=== PATIENT | male | born 1940 | race Caucasian/White ===

== ENCOUNTER → 2017-05-07 | Outpatient (CLI) | payer MEDICARE ==
[~2017-05-07] MED LIST: APIX5TAB PO; FEXO180T15 PO; HYDR25TA6 PO; LOSA100T6 PO; LOVA40TA2 PO; SILD20TA PO; TRAZ50TA18 PO; ZOLP10TA5 PO
== END | disposition home or self-care (01) ==
LOC: RAD 14:12
PROVIDERS: ATTEND Internal Medicine
DX: J18.9 Pneumonia, unspecified organism (principal); I51.7 Cardiomegaly
CPT/HCPCS: 71020

== ENCOUNTER → 2017-06-14 | Outpatient (CLI) | payer MEDICARE | END | disposition home or self-care (01) | LOC: CFH 13:32 | PROVIDERS: ATTEND Internal Medicine | DX: J47.9 Bronchiectasis, uncomplicated (principal); J84.89 Other specified interstitial pulmonary diseases; I51.7 Cardiomegaly | CPT/HCPCS: 71250 ==

== ENCOUNTER 2018-05-30 21:54 | Inpatient (IN) | payer MEDICARE ==
[~2018-05-30] VITALS: Ht 182.9 cm; Wt 96.5 kg
[~2018-05-30 21:54] MED LIST changes: -LOSA100T6 PO; +LOSA100T7 PO; -TRAZ50TA18 PO; +TRAZ50TA66 PO
[2018-05-30 22:38] LABS: RAPID INFLUENZA A Negative (Negative); RAPID INFLUENZA B Negative (Negative)
[2018-05-30 22:43] LABS: BASOPHILS # (AUTO) 0.04 x10^3/uL (0-0.1); BASOPHILS % (AUTO) 0 % (0-1); EOSINOPHILS % (AUTO) 2 % (1-7); LYMPHOCYTES # (AUTO) 0.65 x10^3/uL (1-3.4); LYMPHOCYTES % (AUTO) 7 % (22-44); MD NO; MEAN CORPUSCULAR HEMOGLOBIN 36.1 pg (27.5-34.5); MEAN CORPUSCULAR HGB CONC 34.4 g/dL (33.2-36.2); MEAN PLATELET VOLUME 10.6 fL (7.4-10.4); MONOCYTES # (AUTO) 1.15 x10^3/uL (0.2-0.8); MONOCYTES % (AUTO) 12 % (2-9); NEUTROPHILS # (AUTO) 7.79 x10^3/uL (1.8-6.8); NEUTROPHILS % (AUTO) 79 % (42-75); PLATELET COUNT 166 x10^3/uL (130-400); RED BLOOD COUNT 4.04 x10^6/uL (4.38-5.82)
[2018-05-30 22:51] LABS: ALANINE AMINOTRANSFERASE 20 U/L (12-78); ALBUMIN 3.2 g/dL (3.4-5.0); ANION GAP 9 mmol/L (5-15); CALCIUM 8.2 mg/dL (8.5-10.1); CHLORIDE 101 mmol/L (98-107); CREATININE 0.97 mg/dL (0.7-1.3)
[2018-05-30] MEDS ORDERED: PRED10TA14 PO (22:53)
[2018-05-30] MEDS ORDERED: METF-163 PO (22:53)
[2018-05-30 22:55] LABS: ALKALINE PHOSPHATASE 92 U/L (45-117); BILIRUBIN,TOTAL 0.4 mg/dL (0.2-1.0); TOTAL PROTEIN 7.4 g/dL (6.4-8.2); TROPONIN I 0.022 ng/mL (0.000-0.045)
--- NOTE | 2018-05-30 23:00 | NUR ---
PT HERE FOR INCREASING WEAKNESS, COUGH AND CONGESTION WITH FEVER AT HOME. BP ELEVATED OTHER VSS. PIV STARTED BY [facility]. MED REC COMPLETE. PT PLACED ON MONITORS. CALL LIGHT IN REACH
--- NOTE | 2018-05-30 23:25 | NUR ---
PT TOO WEAK TO AMBULATED. ASSISTED PT TO SITTING PT UNABLE TO SIT WITHOUT ASSISTANCE. MD KENNEY
[2018-05-30] MEDS ORDERED: AZITHROMYCIN 500 MG in SODIUM CHLORIDE 0.9% 250 ML IV ONE (23:30)
[2018-05-30] MEDS ORDERED: CEFTRIAXONE PMX 1GM/50ML 50 ML IV SCH (23:30)
[2018-05-30] MEDS ORDERED: BENZONATATE 100 MG CAPSULE ONE (23:41)
[2018-05-30] MEDS ORDERED: CEFTRIAXONE PMX 1GM/50ML 50 ML ONE (23:42)
[2018-05-31] MEDS ORDERED: BENZONATATE 100 MG CAPSULE PO ONE
--- NOTE | 2018-05-31 00:04 | NUR ---
ABX RUNNING. PT MEDICATED. ADMITTING MD AT BEDSIDE
[2018-05-31] MEDS ORDERED: ACETAMINOPHEN 325 MG TABLET PO PRN (00:30)
[2018-05-31] MEDS ORDERED: DOCUSATE 100 MG CAPSULE PO PRN (00:30)
[2018-05-31] MEDS ORDERED: ONDANSETRON ODT 4 MG PO PRN (00:30)
[2018-05-31] MEDS ORDERED: LIDODERM 5% PATCH TD PRN (00:30)
[2018-05-31] MEDS ORDERED: hydrALAzine 20 MG/ML, 1ML IVPush PRN (00:30)
[2018-05-31] MEDS ORDERED: TRAZODONE 50MG TABLET PO PRN (00:30)
[2018-05-31] MEDS: LOVASTATIN 40 MG TABLET PO SCH ×2 (00:36→21:08)
[2018-05-31] MEDS: GUAIFENESIN/DM 200-20MG, 10ML UDC PO PRN ×2 (00:36→06:14)
[2018-05-31 00:55] VITALS: BP 187/81
[2018-05-31 01:59] VITALS: BP 165/106
[2018-05-31 02:16] VITALS: BP 138/79
[2018-05-31 07:36] VITALS: BP 135/78
[2018-05-31] MEDS: BENZONATATE 100 MG CAPSULE PO SCH ×3 (08:42→21:09)
[2018-05-31] MEDS: HYDROCHLOROTHIAZIDE 25 MG TABLET PO SCH (08:43)
[2018-05-31] MEDS: LOSARTAN 50MG TABLET PO SCH (08:43)
[2018-05-31] MEDS: LORATADINE 10 MG TABLET PO SCH (08:43)
[2018-05-31] MEDS: APIXABAN 5 MG TABLET PO SCH ×2 (08:43→21:09)
[2018-05-31] MEDS: INSULIN LISPRO 100 UNITS/ML, PEN SQ-INSULIN SCH ×4 (09:25→21:25)
[2018-05-31] MEDS: DOXYCYCLINE 100 MG in DEXTROSE 5% 250 ML IV SCH ×2 (09:29→21:09)
[2018-05-31 14:16] VITALS: BP 131/72
[2018-05-31 20:00] VITALS: BP 146/80
[2018-05-31] MEDS ORDERED: CEFTRIAXONE PMX 1GM/50ML 50 ML IV SCH (23:00)
[2018-05-31] MEDS ORDERED: AZITHROMYCIN 500 MG in SODIUM CHLORIDE 0.9% 250 ML IV SCH (23:00)
[2018-06-01 00:14] VITALS: BP 152/94
[2018-06-01 06:29] LABS: BASOPHILS # (AUTO) 0.01 x10^3/uL (0-0.1); BASOPHILS % (AUTO) 0 % (0-1); EOSINOPHILS # (AUTO) 0.02 x10^3/uL (0-0.4); EOSINOPHILS % (AUTO) 0 % (1-7); LYMPHOCYTES # (AUTO) 0.54 x10^3/uL (1-3.4); LYMPHOCYTES % (AUTO) 7 % (22-44); MD NO; MEAN CORPUSCULAR VOLUME 105.8 fL (81-97); MEAN PLATELET VOLUME 10.6 fL (7.4-10.4); MONOCYTES # (AUTO) 0.96 x10^3/uL (0.2-0.8); MONOCYTES % (AUTO) 13 % (2-9); NEUTROPHILS # (AUTO) 5.95 x10^3/uL (1.8-6.8); NEUTROPHILS % (AUTO) 80 % (42-75); PLATELET COUNT 151 x10^3/uL (130-400); RED BLOOD COUNT 3.96 x10^6/uL (4.38-5.82)
[2018-06-01 06:32] LABS: CHLORIDE 100 mmol/L (98-107)
[2018-06-01 06:36] LABS: ANION GAP 8 mmol/L (5-15); CREATININE 0.82 mg/dL (0.7-1.3)
[2018-06-01] MEDS: INSULIN LISPRO 100 UNITS/ML, PEN SQ-INSULIN SCH ×2 (07:00→12:14)
[2018-06-01 07:08] VITALS: BP 161/92
[2018-06-01] MEDS: LOSARTAN 50MG TABLET PO SCH (08:34)
[2018-06-01] MEDS: HYDROCHLOROTHIAZIDE 25 MG TABLET PO SCH (08:34)
[2018-06-01] MEDS: LORATADINE 10 MG TABLET PO SCH (08:34)
[2018-06-01] MEDS: DOXYCYCLINE 100 MG in DEXTROSE 5% 250 ML IV SCH (08:34)
[2018-06-01] MEDS: BENZONATATE 100 MG CAPSULE PO SCH (08:34)
[2018-06-01] MEDS: APIXABAN 5 MG TABLET PO SCH (08:34)
[2018-06-01] MEDS ORDERED: POTASSIUM CHLORIDE 20 MEQ TAB.ER.PRT PO ONE (09:30)
[2018-06-01] MEDS ORDERED: DOXY100T PO (10:12)
[2018-06-01] MEDS ORDERED: CEFD300C37 PO (10:12)
== END 2018-06-01 13:00 | disposition home health service (06) | DRG 194 ==
LOC: ED 23:06 → EDIP 23:25 → 4EST 05-31 00:11
PROVIDERS: ADMIT Hospitalist; ATTEND Hospitalist
PROC: 5A09357 Assistance with Respiratory Ventilation, Less than 24 Consecutive Hours, Continuous Positive Airway Pressure (ICD-10-PCS; principal; 2018-06-01)
DX: J15.9 Unspecified bacterial pneumonia (principal); J84.9 Interstitial pulmonary disease, unspecified; D68.59 Other primary thrombophilia; M35.3 Polymyalgia rheumatica; E11.9 Type 2 diabetes mellitus without complications; I48.91 Unspecified atrial fibrillation; T45.1X5A Adverse effect of antineoplastic and immunosuppressive drugs, initial encounter; E78.00 Pure hypercholesterolemia, unspecified; G47.00 Insomnia, unspecified; E78.5 Hyperlipidemia, unspecified; I11.9 Hypertensive heart disease without heart failure; Z79.52 Long term (current) use of systemic steroids; Z88.6 Allergy status to analgesic agent; Y92.89 Other specified places as the place of occurrence of the external cause
CPT/HCPCS: 36415; 71046; 80048; 80053; 82607; 82962; 83605; 83880; 84484; 85025; 87040; 87400; 93005; 93306; 96365; G0378; J0456; J0696; J7060; J0360; J1815; J7050; J7512

== ENCOUNTER 2019-03-21 19:11 | Inpatient (IN) | payer MEDICARE ==
[~2019-03-21] VITALS: Ht 182.9 cm; Wt 87.5 kg
[~2019-03-21 19:11] MED LIST changes: +CEFD300C37 PO; +DOXY100T PO; +LOSA100T14 PO; -LOSA100T7 PO; +METF-163 PO; +PRED10TA14 PO
[2019-03-21] MEDS ORDERED: PLEASE ENTER HEIGHT AND WEIGHT MC SCH (19:30)
[2019-03-21] MEDS ORDERED: SODIUM CHLORIDE FLUSH 10ML SYR IVF ONE (19:30)
[2019-03-21 19:47] LABS: BASOPHILS # (AUTO) 0.03 x10^3/uL (0-0.1); BASOPHILS % (AUTO) 0 % (0-1); EOSINOPHILS # (AUTO) 0.27 x10^3/uL (0-0.4); EOSINOPHILS % (AUTO) 3 % (1-7); LYMPHOCYTES # (AUTO) 1.18 x10^3/uL (1-3.4); LYMPHOCYTES % (AUTO) 14 % (22-44); MD NO; MEAN CORPUSCULAR HEMOGLOBIN 36.3 pg (27.5-34.5); MEAN PLATELET VOLUME 10.8 fL (7.4-10.4); MONOCYTES # (AUTO) 0.75 x10^3/uL (0.2-0.8); MONOCYTES % (AUTO) 9 % (2-9); NEUTROPHILS # (AUTO) 6.36 x10^3/uL (1.8-6.8); NEUTROPHILS % (AUTO) 74 % (42-75); PLATELET COUNT 165 x10^3/uL (130-400); RED BLOOD COUNT 4.05 x10^6/uL (4.38-5.82); RED CELL DISTRIBUTION WIDTH 14.4 % (9.4-14.8)
[2019-03-21 19:57] LABS: ALANINE AMINOTRANSFERASE 23 U/L (12-78); ALBUMIN 3.5 g/dL (3.4-5.0); ANION GAP 10 mmol/L (5-15); CALCIUM 8.8 mg/dL (8.5-10.1); CHLORIDE 102 mmol/L (98-107)
[2019-03-21 20:03] LABS: ALKALINE PHOSPHATASE 110 U/L (45-117); BILIRUBIN,TOTAL 0.4 mg/dL (0.2-1.0); TOTAL PROTEIN 8.9 g/dL (6.4-8.2); TROPONIN I < 0.015 ng/mL (0.000-0.045)
--- NOTE | 2019-03-21 20:06 | NUR ---
PT ATTEMPTING TO PROVIDE UA SAMPLE AT THIS TIME. FAMILY AT BEDSIDE TO ASSIST.
[2019-03-21 20:46] LABS: MICROSCOPIC INDICATED
--- NOTE | 2019-03-21 20:47 | NUR ---
PT RESTING ON GURNEY. NADN. GOMEZ.
[2019-03-21 20:54] LABS: CULTURE INDICATED? NO
--- NOTE | 2019-03-21 21:23 | NUR ---
REPORT GIVEN TO NIKOLE PATEL.
--- NOTE | 2019-03-21 21:55 | NUR ---
REPORT CALLED TO NIKOLE REDD.
[2019-03-21 22:14] VITALS: BP 155/87
[2019-03-21] MEDS ORDERED: TRAZODONE 50MG TABLET PO PRN (23:30)
[2019-03-22] MEDS ORDERED: ACETAMINOPHEN 325 MG TABLET PO PRN
[2019-03-22] MEDS ORDERED: DOCUSATE 100 MG CAPSULE PO PRN
[2019-03-22] MEDS ORDERED: LIDODERM 5% PATCH TD PRN
[2019-03-22] MEDS ORDERED: ONDANSETRON ODT 4 MG PO PRN
[2019-03-22] MEDS: SODIUM CHLORIDE 0.9% 1,000 ML IV SCH ×4 (00:07→18:14)
[2019-03-22] MEDS: metFORMIN 500 MG TABLET PO SCH ×3 (00:07→17:00)
[2019-03-22] MEDS: APIXABAN 5 MG TABLET PO SCH ×2 (00:08→09:45)
[2019-03-22] MEDS: LOVASTATIN 20 MG TABLET PO SCH ×2 (00:08→19:44)
[2019-03-22 01:16] VITALS: BP 129/74
[2019-03-22 01:16] LABS: TROPONIN I < 0.015 ng/mL (0.000-0.045)
[2019-03-22 01:19] LABS: CLOSTRIDIUM DIFFICILE ANTIGEN NEGATIVE; CLOSTRIDIUM DIFFICILE TOXIN NEGATIVE (Negative)
[2019-03-22 06:47] VITALS: BP 127/75
[2019-03-22 07:53] LABS: BASOPHILS # (AUTO) 0.02 x10^3/uL (0-0.1); BASOPHILS % (AUTO) 0 % (0-1); EOSINOPHILS # (AUTO) 0.07 x10^3/uL (0-0.4); EOSINOPHILS % (AUTO) 1 % (1-7); LYMPHOCYTES # (AUTO) 0.91 x10^3/uL (1-3.4); LYMPHOCYTES % (AUTO) 11 % (22-44); MD NO; MEAN CORPUSCULAR HEMOGLOBIN 36.2 pg (27.5-34.5); MEAN CORPUSCULAR HGB CONC 33.7 g/dL (33.2-36.2); MEAN CORPUSCULAR VOLUME 107.3 fL (81-97); MEAN PLATELET VOLUME 10.4 fL (7.4-10.4); MONOCYTES # (AUTO) 0.77 x10^3/uL (0.2-0.8); MONOCYTES % (AUTO) 9 % (2-9); NEUTROPHILS # (AUTO) 6.67 x10^3/uL (1.8-6.8); NEUTROPHILS % (AUTO) 79 % (42-75); PLATELET COUNT 130 x10^3/uL (130-400); RED BLOOD COUNT 3.74 x10^6/uL (4.38-5.82); RED CELL DISTRIBUTION WIDTH 13.9 % (9.4-14.8)
[2019-03-22 07:58] LABS: ANION GAP 7 mmol/L (5-15); CALCIUM 8.3 mg/dL (8.5-10.1); CHLORIDE 108 mmol/L (98-107); CREATININE 0.79 mg/dL (0.7-1.3)
[2019-03-22 08:02] LABS: FREE T4 (FREE THYROXINE) 0.95 ng/dL (0.76-1.46); TROPONIN I < 0.015 ng/mL (0.000-0.045)
[2019-03-22] MEDS: LORATADINE 10 MG TABLET PO SCH (09:45)
[2019-03-22] MEDS: LOSARTAN 50MG TABLET PO SCH (09:45)
[2019-03-22 13:38] VITALS: BP 119/72
[2019-03-22 18:33] VITALS: BP 138/85
[2019-03-23 00:56] VITALS: BP 145/78
[2019-03-23] MEDS: SODIUM CHLORIDE 0.9% 1,000 ML IV SCH ×4 (02:44→22:12)
[2019-03-23 05:46] LABS: CHLORIDE 107 mmol/L (98-107)
[2019-03-23 05:52] LABS: ANION GAP 8 mmol/L (5-15); CALCIUM 8.2 mg/dL (8.5-10.1); CREATININE 0.85 mg/dL (0.7-1.3)
[2019-03-23 06:38] LABS: INTERNATIONAL NORMALIZED RATIO 1.09 (0.93-1.1); PROTHROMBIN TIME 11.4 Seconds (9.6-11.5)
[2019-03-23 07:28] VITALS: BP 132/82
[2019-03-23] MEDS ORDERED: MAGNESIUM SULFATE PMX 4GM/100M 100 ML IVPB ONE (07:30)
[2019-03-23] MEDS: LORATADINE 10 MG TABLET PO SCH (09:58)
[2019-03-23] MEDS: LOSARTAN 50MG TABLET PO SCH (09:58)
[2019-03-23] MEDS ORDERED: CEFAZOLIN PMX 1GM/50ML 50 ML IVPB ONE (11:00)
[2019-03-23] MEDS: INSULIN REGULAR 100 UNITS/ML, 3ML VIAL SQ-INSULIN SCH ×3 (11:00→21:38)
[2019-03-23 12:19] VITALS: BP 144/77
[2019-03-23] MEDS ORDERED: FENTANYL PF 100 MCG/2ML ONE (15:01)
[2019-03-23] MEDS ORDERED: LIDOCAINE 2%, 20ML ONE (15:01)
[2019-03-23] MEDS ORDERED: CEFAZOLIN PMX 1GM/50ML 50 ML ONE (15:01)
[2019-03-23] MEDS ORDERED: MIDAZOLAM 1 MG/ML, 5ML ONE (15:01)
[2019-03-23] MEDS ORDERED: CEFAZOLIN 1,000 MG ONE (15:01)
[2019-03-23] MEDS ORDERED: LIDOCAINE 1%, 20ML ONE (16:00)
[2019-03-23] MEDS ORDERED: HOLD MEDICATION MC PRN (17:00)
[2019-03-23] MEDS ORDERED: HYDROcodone/APAP 5/325 TABLET PO PRN (17:00)
[2019-03-23 19:35] VITALS: BP 125/83
[2019-03-23] MEDS: LOVASTATIN 20 MG TABLET PO SCH (21:06)
[2019-03-23] MEDS: SODIUM CHLORIDE FLUSH 10ML SYR IVF SCH (21:07)
[2019-03-23] MEDS: CEFAZOLIN PMX 1GM/50ML 50 ML IVPB SCH (22:00)
[2019-03-24 00:56] VITALS: BP 145/91
[2019-03-24 05:18] LABS: ANION GAP 6 mmol/L (5-15); CALCIUM 7.7 mg/dL (8.5-10.1); CHLORIDE 103 mmol/L (98-107)
[2019-03-24] MEDS: CEFAZOLIN PMX 1GM/50ML 50 ML IVPB SCH (05:36)
[2019-03-24 05:47] LABS: CREATININE 0.72 mg/dL (0.7-1.3)
[2019-03-24] MEDS: INSULIN REGULAR 100 UNITS/ML, 3ML VIAL SQ-INSULIN SCH (07:00)
[2019-03-24 07:51] VITALS: BP 138/91
[2019-03-24 09:30] VITALS: BP 110/75
[2019-03-24] MEDS: LORATADINE 10 MG TABLET PO SCH (09:34)
[2019-03-24] MEDS: LOSARTAN 50MG TABLET PO SCH (09:35)
[2019-03-24] MEDS: SODIUM CHLORIDE FLUSH 10ML SYR IVF SCH (09:35)
== END 2019-03-24 11:30 | disposition home health service (06) | DRG 242 ==
LOC: ED 19:43 → EDIP 20:56 → 5SO 22:10 → DCLOUNGE 03-24 11:02
PROVIDERS: ADMIT Family Medicine; ATTEND Internal Medicine
PROC: 0JH604Z Insertion of Pacemaker, Single Chamber into Chest Subcutaneous Tissue and Fascia, Open Approach (ICD-10-PCS; principal; 2019-03-23)
PROC: 02HK3JZ Insertion of Pacemaker Lead into Right Ventricle, Percutaneous Approach (ICD-10-PCS; 2019-03-23)
PROC: 5A09357 Assistance with Respiratory Ventilation, Less than 24 Consecutive Hours, Continuous Positive Airway Pressure (ICD-10-PCS; 2019-03-23)
PROC: 5A09357 Assistance with Respiratory Ventilation, Less than 24 Consecutive Hours, Continuous Positive Airway Pressure (ICD-10-PCS; 2019-03-24)
DX: I49.5 Sick sinus syndrome (principal); I50.33 Acute on chronic diastolic (congestive) heart failure; D68.69 Other thrombophilia; I48.0 Paroxysmal atrial fibrillation; M35.3 Polymyalgia rheumatica; T38.0X5A Adverse effect of glucocorticoids and synthetic analogues, initial encounter; D89.9 Disorder involving the immune mechanism, unspecified; E11.65 Type 2 diabetes mellitus with hyperglycemia; E78.5 Hyperlipidemia, unspecified; E83.42 Hypomagnesemia; E86.0 Dehydration; K52.9 Noninfective gastroenteritis and colitis, unspecified; Z79.01 Long term (current) use of anticoagulants; Z79.52 Long term (current) use of systemic steroids; Z87.891 Personal history of nicotine dependence; Z88.8 Allergy status to other drugs, medicaments and biological substances; I11.0 Hypertensive heart disease with heart failure
CPT/HCPCS: 33207; 36415; 71045; 80048; 80053; 80307; 81001; 82607; 82962; 83735; 83880; 84100; 84439; 84443; 84484; 85025; 85610; 87324; 93005; 93306; 93880; 93970; 99156; 99157; 99285; C1779; C1786; C1892; G0378; J0690; J1815; J2250; J3010; J7512; J3475; J7030

== ENCOUNTER 2019-03-31 09:08 | Observation (INO) | payer MEDICARE ==
[~2019-03-31] VITALS: Ht 182.9 cm; Wt 86.9 kg
--- NOTE | 2019-03-31 09:28 | NUR ---
PATIENT BIB [facility] FOR NEAR SYNCOPAL EPISODE TODAY AT 0830. DENIES LOC, HITTING HEAD. PER EMS, PATIENT HAD SYNCOPAL EPISODE ON 03/22/19 AND HAD PACEKAER PUT IN. PATIENT C/O DIZZINESS AND SOB, DENIES CP. PACEMAKER CAPTURING, HX A-FIB, DM. [id number] PER [facility]. 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 PATIENT A+OX4. NADN, CALL LIGHT WITHIN REACH.
--- NOTE | 2019-03-31 09:41 | NUR ---
TASK RN: ERP DR. MULLIGAN AT BEDSIDE.
--- NOTE | 2019-03-31 10:09 | NUR ---
INTERROGATING PACEMAKER AT THIS TIME, AWAITING RESULTS. PATIENT UPDATED ON POC, PATIENT SITTING IN ELIZABETRSCOTTY EPPS. RESP EVEN/UNLABORED. VS UPDATED IN CHART.
[2019-03-31] MEDS ORDERED: SPIR25TA5 PO (10:15)
[2019-03-31] MEDS ORDERED: ONDANSETRON ODT 4 MG ONE (10:20)
[2019-03-31] MEDS ORDERED: ONDANSETRON ODT 8 MG ONE (10:23)
--- NOTE | 2019-03-31 10:25 | NUR ---
PATIENT REPORTING NAUSEA, MD AWARE, ZOFRAN ADMINISTERED PER ORDER, A+OX4. NO ADDITIONAL NEEDS AT THIS TIME. AWAITING INTERROGATION TO BE FINISHED.
[2019-03-31] MEDS ORDERED: ONDANSETRON ODT 8 MG PO ONE (10:30)
[2019-03-31 11:05] LABS: BASOPHILS # (AUTO) 0.02 x10^3/uL (0-0.1); BASOPHILS % (AUTO) 0 % (0-1); EOSINOPHILS # (AUTO) 0.15 x10^3/uL (0-0.4); EOSINOPHILS % (AUTO) 1 % (1-7); LYMPHOCYTES # (AUTO) 0.96 x10^3/uL (1-3.4); LYMPHOCYTES % (AUTO) 8 % (22-44); MD NO; MEAN CORPUSCULAR HEMOGLOBIN 35.5 pg (27.5-34.5); MEAN CORPUSCULAR HGB CONC 32.7 g/dL (33.2-36.2); MEAN CORPUSCULAR VOLUME 108.4 fL (81-97); MEAN PLATELET VOLUME 11.8 fL (7.4-10.4); MONOCYTES # (AUTO) 1.24 x10^3/uL (0.2-0.8); MONOCYTES % (AUTO) 11 % (2-9); NEUTROPHILS # (AUTO) 9.26 x10^3/uL (1.8-6.8); NEUTROPHILS % (AUTO) 80 % (42-75); PLATELET COUNT 154 x10^3/uL (130-400); RED BLOOD COUNT 3.66 x10^6/uL (4.38-5.82); RED CELL DISTRIBUTION WIDTH 14.1 % (9.4-14.8)
[2019-03-31 11:18] LABS: ALANINE AMINOTRANSFERASE 20 U/L (12-78); ALBUMIN 3.1 g/dL (3.4-5.0); ANION GAP 7 mmol/L (5-15); CALCIUM 8.2 mg/dL (8.5-10.1); CHLORIDE 103 mmol/L (98-107); CREATININE 0.91 mg/dL (0.7-1.3)
[2019-03-31 11:22] LABS: ALKALINE PHOSPHATASE 108 U/L (45-117); BILIRUBIN,TOTAL 0.7 mg/dL (0.2-1.0); TOTAL PROTEIN 8.1 g/dL (6.4-8.2)
--- NOTE | 2019-03-31 11:39 | NUR ---
REPORT TO NIKOLE LAO.
--- NOTE | 2019-03-31 11:56 | NUR ---
IV ESTABILSHED, PATIENT BEING TRANSPORTED/ADMITTED TO HOSPITAL BED UPSTAIRS AT THIS TIME,
[2019-03-31 12:18] VITALS: BP 134/88
[2019-03-31] MEDS ORDERED: ONDANSETRON 2MG/ML, 2ML IVPush PRN (12:30)
[2019-03-31] MEDS ORDERED: LABETALOL 5MG/ML, 20ML IVPush PRN (12:30)
[2019-03-31] MEDS ORDERED: ONDANSETRON ODT 4 MG PO PRN (12:30)
[2019-03-31] MEDS ORDERED: POLYETHYLENE GLYCOL 17 GM PACKET PO PRN (12:30)
[2019-03-31 12:41] VITALS: BP_SYST 125; BP_SYST 133; BP_DIAS 82; BP_DIAS 89
[2019-03-31 12:42] VITALS: BP 113/75
[2019-03-31 12:54] LABS: FREE T4 (FREE THYROXINE) 1.01 ng/dL (0.76-1.46); TROPONIN I < 0.015 ng/mL (0.000-0.045)
[2019-03-31] MEDS ORDERED: MAGNESIUM SULFATE PMX 2GM/50ML 50 ML IV ONE (15:30)
[2019-03-31 18:13] LABS: TROPONIN I 0.019 ng/mL (0.000-0.045)
[2019-03-31] MEDS ORDERED: DEXTROSE 50%, 50ML SYRINGE IVPush PRN (18:30)
[2019-03-31] MEDS ORDERED: GLUCAGON 1 MG IM PRN (18:30)
[2019-03-31] MEDS ORDERED: DEXTROSE 4 GM TAB.CHEW PO PRN (18:30)
[2019-03-31] MEDS ORDERED: SODIUM CHLORIDE 0.9% 1,000 ML IV SCH (18:30)
[2019-03-31 18:50] LABS: MICROSCOPIC NOT IND
[2019-03-31 18:57] LABS: CULTURE INDICATED? NO
[2019-03-31 19:00] VITALS: BP 120/76
[2019-03-31] MEDS: SODIUM CHLORIDE FLUSH 10ML SYR IVF SCH (20:15)
[2019-03-31] MEDS ORDERED: LOVASTATIN 20 MG TABLET PO SCH (21:00)
[2019-03-31] MEDS ORDERED: predniSONE 5 MG/5 ML ORAL SOL PO SCH (21:00)
[2019-03-31] MEDS ORDERED: APIXABAN 5 MG TABLET PO SCH (21:00)
[2019-04-01 00:28] VITALS: BP 135/74
[2019-04-01 05:52] LABS: MEAN CORPUSCULAR HEMOGLOBIN 36.7 pg (27.5-34.5); MEAN CORPUSCULAR HGB CONC 33.2 g/dL (33.2-36.2); MEAN CORPUSCULAR VOLUME 110.5 fL (81-97); MEAN PLATELET VOLUME 12.2 fL (7.4-10.4); PLATELET COUNT 154 x10^3/uL (130-400); RED BLOOD COUNT 3.61 x10^6/uL (4.38-5.82); RED CELL DISTRIBUTION WIDTH 14.1 % (9.4-14.8)
[2019-04-01] MEDS ORDERED: PANTOPROZOLE 40MG TABLET PO SCH (06:00)
[2019-04-01 06:01] LABS: ALBUMIN 2.9 g/dL (3.4-5.0); ANION GAP 3 mmol/L (5-15); CHLORIDE 106 mmol/L (98-107)
[2019-04-01 06:14] LABS: BASOPHILS # (AUTO) 0.01 x10^3/uL (0-0.1); BASOPHILS % (AUTO) 0 % (0-1); EOSINOPHILS # (AUTO) 0.12 x10^3/uL (0-0.4); EOSINOPHILS % (AUTO) 1 % (1-7); LYMPHOCYTES # (AUTO) 0.91 x10^3/uL (1-3.4); LYMPHOCYTES % (AUTO) 9 % (22-44); MD SCAN; MONOCYTES # (AUTO) 0.84 x10^3/uL (0.2-0.8); MONOCYTES % (AUTO) 9 % (2-9); NEUTROPHILS # (AUTO) 7.76 x10^3/uL (1.8-6.8); NEUTROPHILS % (AUTO) 80 % (42-75)
[2019-04-01 06:16] LABS: ALANINE AMINOTRANSFERASE 16 U/L (12-78); ALKALINE PHOSPHATASE 97 U/L (45-117); BILIRUBIN,TOTAL 0.8 mg/dL (0.2-1.0); CALCIUM 8.1 mg/dL (8.5-10.1); CREATININE 0.84 mg/dL (0.7-1.3); TOTAL PROTEIN 7.6 g/dL (6.4-8.2)
[2019-04-01] MEDS ORDERED: MAGNESIUM SULFATE PMX 2GM/50ML 50 ML IV ONE (07:00)
[2019-04-01] MEDS ORDERED: POTASSIUM CHLORIDE 20 MEQ TAB.ER.PRT PO ONE (07:00)
[2019-04-01] MEDS ORDERED: PANTOPRAZOLE 40 MG IV IVPush SCH (07:30)
[2019-04-01 07:34] VITALS: BP 122/79
[2019-04-01] MEDS: SODIUM CHLORIDE FLUSH 10ML SYR IVF SCH (08:51)
[2019-04-01] MEDS ORDERED: SENNA/DOCUSATE TABLET PO SCH (09:00)
[2019-04-01 12:35] VITALS: BP 137/89
[2019-04-01] MEDS ORDERED: ONDA4TAB13 PO (14:37)
== END 2019-04-01 16:20 | disposition home or self-care (01) ==
LOC: ED 11:00 → EDIP 11:05 → INTOOBSV 11:05 → 4EST 11:59 → DCLOUNGE 04-01 16:13
PROVIDERS: ADMIT Family Medicine; ATTEND Hospitalist
DX: R55 Syncope and collapse (principal); D72.829 Elevated white blood cell count, unspecified; E87.1 Hypo-osmolality and hyponatremia; D68.69 Other thrombophilia; E11.9 Type 2 diabetes mellitus without complications; I10 Essential (primary) hypertension; E78.5 Hyperlipidemia, unspecified; I48.91 Unspecified atrial fibrillation; E78.00 Pure hypercholesterolemia, unspecified; E66.01 Morbid (severe) obesity due to excess calories; E83.42 Hypomagnesemia; C44.91 Basal cell carcinoma of skin, unspecified; D64.9 Anemia, unspecified; I49.5 Sick sinus syndrome; Z79.01 Long term (current) use of anticoagulants; Z87.891 Personal history of nicotine dependence; Z95.0 Presence of cardiac pacemaker
CPT/HCPCS: 36415; 71045; 80053; 81003; 82533; 82962; 83735; 84100; 84439; 84443; 84484; 85025; 85379; 93005; 96361; 96365; 96366; 99284; G0378; J3475; J7030; J7512; Q0162

== ENCOUNTER 2019-05-04 09:57 | Day surgery (SDC) | payer MEDICARE ==
[~2019-05-04] VITALS: Ht 182.9 cm; Wt 85.0 kg
[~2019-05-04 09:57] MED LIST changes: +ONDA4TAB13 PO; +SPIR25TA5 PO
[2019-05-04 10:23] VITALS: BP 135/73
[2019-05-04] MEDS ORDERED: SODIUM CHLORIDE 0.9% 1,000 ML IV SCH (10:30)
[2019-05-04] MEDS ORDERED: PROPOFOL 10 MG/ML, 50ML ONE (12:29)
== END 2019-05-04 14:30 | disposition home or self-care (01) ==
LOC: CACL 09:57
PROVIDERS: ATTEND Internal Medicine Cardiovascular Disease
DX: I34.1 Nonrheumatic mitral (valve) prolapse (principal); I48.0 Paroxysmal atrial fibrillation; I10 Essential (primary) hypertension; E11.9 Type 2 diabetes mellitus without complications; E78.5 Hyperlipidemia, unspecified; Z79.01 Long term (current) use of anticoagulants; Z79.84 Long term (current) use of oral hypoglycemic drugs; Z79.899 Other long term (current) drug therapy; Z88.8 Allergy status to other drugs, medicaments and biological substances; Z95.0 Presence of cardiac pacemaker
CPT/HCPCS: 93312; 93325; J2704

== ENCOUNTER → 2019-07-07 | Outpatient (CLI) | payer MEDICARE ==
[~2019-07-07] MED LIST changes: +REGADENOSON 0.4 MG/5 ML SYRINGE ONE
== END | disposition home or self-care (01) ==
LOC: CFH 07:48
PROVIDERS: ATTEND Registered Nurse
DX: I48.0 Paroxysmal atrial fibrillation (principal); R55 Syncope and collapse
CPT/HCPCS: 78452; 93017; A9502; J2785

== ENCOUNTER 2020-04-06 09:46 | Emergency (ER) | payer MEDICARE ==
[~2020-04-06] VITALS: Ht 182.9 cm; Wt 86.7 kg
[~2020-04-06 09:46] MED LIST changes: +CETI-158 PO; -REGADENOSON 0.4 MG/5 ML SYRINGE ONE
--- NOTE | 2020-04-06 10:11 | NUR ---
pt in room and on cardiac, nibp, and o2 monitoring. tech at bedside for iv access. poc is labs and ct at this time. call light in reach. at bedside.
[2020-04-06 10:55] VITALS: BP 128/66
[2020-04-06 11:10] LABS: BASOPHILS % (AUTO) 1 % (0-1); EOSINOPHILS % (AUTO) 2 % (1-7); LYMPHOCYTES % (AUTO) 14 % (22-44); MEAN CORPUSCULAR HEMOGLOBIN 36.7 pg (27.5-34.5); MEAN CORPUSCULAR HGB CONC 33.2 g/dL (33.2-36.2); MEAN PLATELET VOLUME 9.4 fL (7.4-10.4); MONOCYTES % (AUTO) 11 % (2-9); NEUTROPHILS % (AUTO) 73 % (42-75); PLATELET COUNT 171 x10^3/uL (130-400); RED CELL DISTRIBUTION WIDTH 13.5 % (9.4-14.8)
[2020-04-06 11:13] LABS: MD NO
[2020-04-06 11:21] LABS: ANION GAP 5 mmol/L (5-15); CALCIUM 8.6 mg/dL (8.5-10.1); CHLORIDE 105 mmol/L (98-107)
[2020-04-06 11:22] LABS: ALBUMIN 3.1 g/dL (3.4-5.0)
== END 2020-04-06 12:05 | disposition home or self-care (01) ==
LOC: ED 10:38
DX: I48.20 Chronic atrial fibrillation, unspecified (principal); G62.9 Polyneuropathy, unspecified; I49.3 Ventricular premature depolarization; Z79.01 Long term (current) use of anticoagulants; I10 Essential (primary) hypertension; E11.9 Type 2 diabetes mellitus without complications; E78.00 Pure hypercholesterolemia, unspecified; Z95.0 Presence of cardiac pacemaker
CPT/HCPCS: 36415; 70450; 80048; 82040; 85025; 93005; 99285

== ENCOUNTER → 2020-04-18 | Outpatient (CLI) | payer MEDICARE | END | disposition home or self-care (01) | LOC: CVU 10:51 | PROVIDERS: ATTEND Internal Medicine Cardiovascular Disease | DX: I65.23 Occlusion and stenosis of bilateral carotid arteries (principal); R53.1 Weakness; R55 Syncope and collapse; E78.5 Hyperlipidemia, unspecified | CPT/HCPCS: 93880 ==